=== PATIENT | male | born 1990 ===

== ENCOUNTER 2016-08-02 15:04 | Emergency (ER) | payer OTHER ==
[2016-08-02 15:04] VITALS: BMI 27.1
[2016-08-02 15:18] VITALS: TEMP 98.5
[2016-08-02] MEDS ORDERED: Sodium Chloride 0.9% 1,000 ML IV ONE (15:49)
[2016-08-02] MEDS ORDERED: Sodium Chloride 0.9% 1,000 ML ONE (17:05)
[2016-08-02 17:07] LABS: BASO # 0.1 K/uL (0.0-0.2); BASO % 0.8 % (0.0-2.0); EOS % 0.4 % (0.0-4.0); HEMATOCRIT 50.6 % (35.0-51.0); LYMPH # 2.1 K/uL (1.0-4.3); MEAN CELL VOLUME 87.2 fL (80.0-94.0); MEAN CORPUSCULAR HEMOGLOBIN 30.2 pg (27.0-31.0); MEAN CORPUSCULAR HGB CONC 34.7 g/dL (33.0-37.0); MEAN PLATELET VOLUME 8.8 fL (7.2-11.7); MONO # 0.7 K/uL (0.0-0.8); MONO % 11.7 % (0.0-10.0); RED CELL DISTRIBUTION WIDTH 12.8 % (11.5-14.5); WHITE BLOOD COUNT 6.2 K/uL (4.8-10.8)
[2016-08-02 17:19] LABS: CHLORIDE 101 mmol/L (98-107); SODIUM 139 mmol/L (132-148)
[2016-08-02 17:20] LABS: POTASSIUM 3.8 mmol/L (3.6-5.2)
[2016-08-02 17:22] LABS: ALB/GLOB RATIO 1.4 (1.0-2.1); AST/SGOT 54 U/L (17-59); BILIRUBIN,TOTAL 0.7 mg/dL (0.2-1.3); BLOOD UREA NITROGEN 17 mg/dL (9-20); CARBON DIOXIDE 25 mmol/L (22-30); GFR AFRICAN-AMERICAN > 60; GLUCOSE,RANDOM 97 mg/dL (75-110); TOTAL PROTEIN 8.5 g/dL (6.3-8.3)
[2016-08-02 17:23] LABS: ALKALINE PHOSPHATASE 95 U/L (38-126); ALT/SGPT 69 U/L (21-72)
--- NOTE | 2016-08-02 17:29 | RAD ---
HISTORY: chest pain COMPARISON: Comparison chest 06/05/2015. TECHNIQUE: Chest PA and lateral FINDINGS: LUNGS: No active pulmonary disease. PLEURA: No significant pleural effusion identified. No pneumothorax apparent. CARDIOVASCULAR: Normal. OSSEOUS STRUCTURES: No significant abnormalities. VISUALIZED UPPER ABDOMEN: Normal. OTHER FINDINGS: None. IMPRESSION: No active disease.
--- NOTE | 2016-08-02 17:29 | C.PDOC ---
History Of Present Illness 26-year-old male, denies significant PMHx, presents to the emergency department with complaints of two-day duration of chest pain that is associated with intermittent dizziness and mild shortness of breath. States symptoms worsened today, resulting in him coming to the ED for evaluation. Denies nausea/vomiting , fevers, chills, dizziness, back pain, No other complaints at this time. Chief Complaint (Nursing): Chest Pain History Per: Patient History/Exam Limitations: no limitations Onset/Duration Of Symptoms: Days (2) Current Symptoms Are (Timing): Still Present Severity: Moderate Past Medical History Reviewed: Historical Data, Nursing Documentation, Vital Signs Vital Signs: Last Vital Signs Temp 98.5 F 08/02/16 15:18 Pulse 87 08/02/16 15:18 Resp 20 08/02/16 15:18 BP 170/92 H 08/02/16 15:18 Pulse Ox 100 08/02/16 18:36 - Medical History PMH: Anxiety Denies: Pulmonary Embolism, Chronic Kidney Disease Surgical History: Appendectomy - [facility] Procedures DPT ADMINISTRATION (05/31/14) SUTURE OF LIP LACERATION (05/31/14) Family History: States: No Known Family Hx - Social History Hx Tobacco Use: No Hx Alcohol Use: No Hx Substance Use: No - Immunization History Hx Tetanus Toxoid Vaccination: No Hx Influenza Vaccination: No Hx Pneumococcal Vaccination: No Review Of Systems Except As Marked, All Systems Reviewed And Found Negative. Constitutional: Negative for: Fever, Chills Cardiovascular: Positive for: Chest Pain Respiratory: Positive for: Shortness of Breath Gastrointestinal: Negative for: Nausea, Vomiting Skin: Negative for: Rash Neurological: Positive for: Dizziness. Negative for: Weakness, Numbness, Headache Physical Exam - Physical Exam Appears: Non-toxic, No Acute Distress Skin: Warm, Dry, No Rash Head: Atraumatic, Normacephalic Eye(s): bilateral: Normal Inspection, PERRL, EOMI Nose: Normal Oral Mucosa: Moist Lips: Normal Appearing Neck: Normal ROM Cardiovascular: Rhythm Regular Respiratory: Normal Breath Sounds, No Accessory Muscle Use Gastrointestinal/Abdominal: Normal Exam Back: Normal Inspection Extremity: Normal ROM Neurological/Psych: Oriented x3 ED Course And Treatment - Laboratory Results Result Diagrams: 08/02/16 17:04 08/02/16 17:04 ECG: Interpreted By Me, Viewed By Me ECG Rhythm: Sinus Rhythm ECG Interpretation: No Acute Changes Rate From EC O2 Sat by Pulse Oximetry: 100 (on RA) Medical Decision Making Medical Decision Makin:50pm - Patient feeling better. Labs/EKG reviewed. Patient to be discharged with followup instructions. Upon discharge, patient now stated that he drinks a lot of drinks with caffeine in it. Advised to reduce. Disposition - Disposition Referrals: [facility], [Non-Staff] - Disposition: HOME/ ROUTINE Disposition Time: 18:40 Condition: IMPROVED Additional Instructions: Thank you for letting us take care of you today. Your provider was Dr. Bautista. You were treated for non-cardiac chest pain. The emergency medical care you received today was directed at your acute symptoms. If you were prescribed any medication, please fill it and take as directed. It may take several days for your symptoms to resolve. Return to the Emergency Department if your symptoms worsen, do not improve, or if you have any other problems. Please contact your doctor or call one of the physicians/clinics you have been referred to that are listed on the Patient Visit Information form that is included in your discharge packet. Bring any paperwork you were given at discharge with you along with any medications you are taking to your follow up visit. Our treatment cannot replace ongoing medical care by a primary care provider (PCP) outside of the emergency department. Thank you for allowing the [facility] team to be part of your care today. Follow up with your doctor in 2-3 days for re-evaluation. Prescriptions: Ibuprofen [Motrin] 600 mg PO Q6 PRN #20 tab PRN Reason: Pain, Moderate (4-7) Instructions: Noncardiac Chest Pain (ED) - Clinical Impression Clinical Impression: Chest discomfort - Scribe Statement The provider has reviewed the documentation as recorded by the Luis Alfredoibadrian Grace All medical record entries made by the Scribe were at my direction and personally dictated by me. I have reviewed the chart and agree that the record accurately reflects my personal performance of the history, physical exam, medical decision making, and the department course for this patient. I have also personally directed, reviewed, and agree with the discharge instructions and disposition.
[2016-08-02 17:52] LABS: THYROID STIMULATING HORMONE 0.78 mIU/L (0.46-4.68)
[2016-08-02 18:57] VITALS: BP 128/77; PULSE 74; RESP 16; O2SAT 98
== END 2016-08-02 18:56 | disposition home or self-care (01) ==
LOC: C.ER 15:04
DX: R07.89 Other chest pain (principal)
CPT/HCPCS: 71020; 80053; 84443; 84484; 85025; 96374; 99284; G0480; J1885; J7040

== ENCOUNTER 2017-03-14 05:00 | Emergency (ER) | payer SELFPAY ==
[2017-03-14 05:00] VITALS: BMI 27.1
[2017-03-14 05:21] VITALS: O2SAT 100
--- NOTE | 2017-03-14 05:46 | C.PDOC ---
History Of Present Illness 26 years old Male presents to ED with complaints of feeling "blood rushing through his head." Pt states he woke up from palpitations but currently has no palpitation. Also pt states it feels like the "room is spinning." Denies earaches, sore throat, runny nose or use of drugs. Chief Complaint (Nursing): Dizziness/Lightheaded History Per: Patient History/Exam Limitations: no limitations Onset/Duration Of Symptoms: Hrs Current Symptoms Are (Timing): Still Present Associated Symptoms Preceding Syncopal Episode: No Predromal Symptoms (Sudden Onset) Seizure Or Post-ictal Symptoms: None Possible Causative Factor(s): Vertigo Fall Associated With With Symptoms: No Recent travel outside of the [place]: No - Symptoms Of CVA Associated Symptoms: denies: Impaired Speech, Seizure Activity, New Vision Deficit(Left), New Vision Deficit(Right), Decreased Ability To Walk, New Confusion Recent Head Trauma: No Past Medical History Reviewed: Historical Data, Nursing Documentation, Vital Signs Vital Signs: Last Vital Signs Temp 97.5 F L 03/14/17 06:26 Pulse 60 03/14/17 06:26 Resp 18 03/14/17 06:26 BP 134/89 03/14/17 06:26 Pulse Ox 100 03/14/17 06:37 - Medical History PMH: Anxiety Surgical History: Appendectomy - [facility] Procedures DPT ADMINISTRATION (05/31/14) SUTURE OF LIP LACERATION (05/31/14) Family History: States: Unknown Family Hx - Social History Hx Tobacco Use: No Hx Alcohol Use: No Hx Substance Use: No - Immunization History Hx Tetanus Toxoid Vaccination: No Hx Influenza Vaccination: No Hx Pneumococcal Vaccination: No Review Of Systems Constitutional: Negative for: Fever Cardiovascular: Negative for: Chest Pain, Palpitations Gastrointestinal: Positive for: Nausea. Negative for: Vomiting Neurological: Positive for: Dizziness. Negative for: Weakness, Numbness Physical Exam - Physical Exam Appears: Well, Non-toxic Skin: Warm, Dry Head: Atraumatic, Normacephalic, Other (Positive jing hallpike when turning head towards right) Eye(s): bilateral: Normal Inspection Oral Mucosa: Moist Neck: Supple Chest: Symmetrical, No Tenderness Cardiovascular: Rhythm Regular Respiratory: No Normal Breath Sounds, No Decreased Breath Sounds, No Accessory Muscle Use, No Rales, No Rhonchi, No Wheezing Gastrointestinal/Abdominal: Soft, No Tenderness, No Distention Neurological/Psych: Oriented x3, Normal Speech, Normal Cognition ED Course And Treatment O2 Sat by Pulse Oximetry: 100 (RA) Pulse Ox Interpretation: Normal Medical Decision Making Medical Decision Making: Ordered EKG and administered Antivert and Xanax. EKG Results: sinus rhythm bradycardic at 53bpm. No ectopy. No ST-T wave changes. Disposition - Disposition Referrals: [facility] [Outside] Disposition: HOME/ ROUTINE Disposition Time: 06:39 Condition: GOOD Prescriptions: ALPRAZolam [Xanax] 0.25 mg PO TID PRN #12 tab PRN Reason: Anxiety Meclizine [Antivert] 12.5 mg PO TID PRN #15 tab PRN Reason: Dizziness Instructions: Vertigo (ED), Anxiety (ED) Forms: [employer] (Andorran) Print Language: PORTUGUESE - Clinical Impression Clinical Impression: Vertigo, Anxiety - Scribe Statement The provider has reviewed the documentation as recorded by the Luis Alfredoibadrian Baxter All medical record entries made by the Luis Alfredoibadrian were at my direction and personally dictated by me. I have reviewed the chart and agree that the record accurately reflects my personal performance of the history, physical exam, medical decision making, and the department course for this patient. I have also personally directed, reviewed, and agree with the discharge instructions and disposition.
[2017-03-14 06:30] VITALS: BP 134/89; PULSE 60; RESP 18; TEMP 97.5
--- NOTE | 2017-03-15 22:29 | CARD ---
APPROVED REPORT EKG Measurement Heart [id number] <Conclusion> Sinus bradycardia Otherwise normal ECG
== END 2017-03-14 06:31 | disposition home or self-care (01) ==
LOC: C.ER 05:00
DX: F41.9 Anxiety disorder, unspecified (principal); R42 Dizziness and giddiness

== ENCOUNTER 2017-04-05 14:16 | Emergency (ER) | payer OTHER ==
[2017-04-05 14:16] VITALS: BMI 27.1
[2017-04-05 14:59] VITALS: RESP 18
--- NOTE | 2017-04-05 15:41 | C.PDOC ---
History Of Present Illness 27 y/o male presents to ED with complaints of right ear pain radiating to head for 2 days with associated dizziness. Patient denies fever, chills, hearing loss , vision changes or any other complaints at this time. Chief Complaint (Nursing): ENT Problem History Per: Patient History/Exam Limitations: None Onset/Duration Of Symptoms: Days Current Symptoms Are (Timing): Still Present Quality (Ear): Pain W/Touch Past Medical History Reviewed: Historical Data, Nursing Documentation, Vital Signs Vital Signs: Last Vital Signs Temp 98.6 F 04/05/17 16:00 Pulse 68 04/05/17 16:00 Resp 18 04/05/17 16:00 BP 137/82 04/05/17 16:00 Pulse Ox 100 04/05/17 16:00 - Medical History PMH: Anxiety Surgical History: Appendectomy - [facility] Procedures DPT ADMINISTRATION (05/31/14) SUTURE OF LIP LACERATION (05/31/14) Family History: States: No Known Family Hx - Social History Hx Tobacco Use: No Hx Alcohol Use: No Hx Substance Use: No - Immunization History Hx Tetanus Toxoid Vaccination: No Hx Influenza Vaccination: No Hx Pneumococcal Vaccination: No Review Of Systems Constitutional: Negative for: Fever, Chills Eyes: Negative for: Vision Change ENT: Positive for: Ear Pain. Negative for: Ear Discharge Respiratory: Negative for: Cough Gastrointestinal: Negative for: Nausea, Vomiting Skin: Negative for: Rash Physical Exam - Physical Exam Appears: Non-toxic, No Acute Distress Skin: Warm, Dry, No Rash Head: Atraumatic, Normacephalic Eye(s): bilateral: Normal Inspection Ear(s): Left: Normal, Right: Other (inflammation to external auditory canal) Oral Mucosa: Moist Throat: Normal, No Erythema, No Exudate Neck: Supple Cardiovascular: Rhythm Regular, Murmur (2 over 6) Respiratory: Normal Breath Sounds, No Rales, No Rhonchi, No Wheezing Gastrointestinal/Abdominal: Soft, No Tenderness, No Guarding, No Rebound Neurological/Psych: Oriented x3 ED Course And Treatment O2 Sat by Pulse Oximetry: 99 (RA) Pulse Ox Interpretation: Normal Medical Decision Making Medical Decision Making: Impression: Infection in Ear canal Progress:; Patient d/c with ear drops Disposition - Disposition Referrals: [facility] [Outside] Disposition: HOME/ ROUTINE Disposition Time: 15:41 Condition: GOOD Prescriptions: Neomycin/Polymyxin/Hydrocortis [Cortisporin Otic Susp] 3 drop AD QID #100 bottle Instructions: Otitis Externa (ED) Forms: [facility] (Senegalese) Print Language: KOREAN - Clinical Impression Clinical Impression: Otitis externa - Scribe Statement The provider has reviewed the documentation as recorded by the Luis Alfredoibadrian Dolan All medical record entries made by the Luis Alfredoibadrian were at my direction and personally dictated by me. I have reviewed the chart and agree that the record accurately reflects my personal performance of the history, physical exam, medical decision making, and the department course for this patient. I have also personally directed, reviewed, and agree with the discharge instructions and disposition.
[2017-04-05 16:01] VITALS: BP 137/82; PULSE 68; TEMP 98.6
[2017-04-05 16:28] VITALS: O2SAT 99
== END 2017-04-05 16:01 | disposition home or self-care (01) ==
LOC: C.ER 14:16
DX: H60.91 Unspecified otitis externa, right ear (principal)